=== PATIENT | male | born 1960 | race African-American/Black ===

== ENCOUNTER 2016-12-07 04:02 | Emergency (ER) | payer OTHER ==
[~2016-12-07] VITALS: Ht 182.9 cm; Wt 108.9 kg
[2016-12-07] MEDS ORDERED: ONDANSETRON ODT 4 MG TAB.RAPDIS. PO ONE (04:45)
[2016-12-07] MEDS ORDERED: HYDROmorphone 2 MG/ML VIAL IM ONE (04:45)
[2016-12-07] MEDS ORDERED: IBUPROFEN 600 MG TABLET. PO ONE (04:45)
[2016-12-07] MEDS ORDERED: CYCLOBENZAPRINE 10 MG TABLET. PO ONE (04:45)
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
[2016-12-07] MEDS ORDERED: CYCL10TA2 PO (06:26)
[2016-12-07] MEDS ORDERED: IBUP-1007 PO (06:26)
[2016-12-07] MEDS ORDERED: HYDR-971 PO (06:26)
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
[2016-12-07 06:38] VITALS: BP 175/87
== END 2016-12-07 06:40 | disposition home or self-care (01) ==
LOC: ER 04:02
DX: M54.2 Cervicalgia (principal); M25.512 Pain in left shoulder; M25.511 Pain in right shoulder; M54.6 Pain in thoracic spine; Z88.0 Allergy status to penicillin; V49.49XA Driver injured in collision with other motor vehicles in traffic accident, initial encounter; Y93.89 Activity, other specified; Y99.8 Other external cause status; Y92.488 Other paved roadways as the place of occurrence of the external cause
CPT/HCPCS: 72125; 72128; 96372; 99284; J1170; Q0162